=== PATIENT | male | born 1945 | race Caucasian/White ===

== ENCOUNTER 2022-02-05 13:34 | Inpatient (IN) ==
[2022-02-05] MEDS ORDERED: 0.9 % Sodium Chloride 1,000 ML IV ONE (13:44)
[2022-02-05] MEDS ORDERED: Iopamidol - 370 500 ML MLS IVP ONE (13:44)
[2022-02-05 14:28] LABS: Basophils % 0.2 %; Hematocrit 41.1 % (37.5-50.1); Hemoglobin 13.9 g/dL (12.9-16.9); Immature Granulocytes % 0.4 % (0-4); Lymphocytes # 0.9 K/mcL (0.6-4.6); Lymphocytes % 9.8 %; Mean Corpuscular HGB Conc 33.8 g/dL (31.6-35.5); Mean Corpuscular Hemoglobin 32.4 pg (28.0-33.3); Mean Corpuscular Volume 95.8 fL (83.0-100.0); Mean Platelet Volume 10.6 fL (9.4-12.4); Monocytes # 0.4 K/mcL (0.0-1.3); Monocytes % 3.9 %; Neutrophils # 8.1 K/mcL (1.6-8.9); Platelet Count 259 K/mcL (140-400); Red Blood Count 4.29 M/mcL (4.19-5.50); Red Cell Distribution Width 13.4 % (11.5-14.5); Segmented Neutrophils % 85.7 %; White Blood Count 9.4 K/mcL (4.3-11.1)
[2022-02-05 14:50] LABS: Alanine Aminotransferase 12 Units/L (7-52); Albumin 4.2 g/dL (3.5-5.7); Albumin/Globulin Ratio 1.2 (1.1-2.2); Alkaline Phosphatase 75 Units/L (34-104); Aspartate Amino Transferase 18 Units/L (13-39); BUN/Creatinine Ratio 25 (6-26); Bilirubin,Total 0.7 mg/dL (0.3-1.0); Blood Urea Nitrogen 20 mg/dL (8-23); Calcium 9.6 mg/dL (8.6-10.3); Carbon Dioxide 28 mEq/L (23-29); Chloride 108 mEq/L (98-107); Globulin 3.4 g/dL (2.4-3.5); Glucose 117 mg/dL (70-105); Lipase 32 Units/L (11-82); Osmolality,Calculated 296 (280-300); Potassium 3.8 mEq/L (3.5-5.1); Sodium 141 mEq/L (136-145); Total Protein 7.6 g/dL (6.4-8.9)
[2022-02-05] MEDS ORDERED: Naloxone 0.4 MG/ML INJ IVP PRN ×2 (16:34→20:29)
[2022-02-05] MEDS ORDERED: Ketorolac 30 MG/ML VIAL IVP PRN (16:34)
[2022-02-05] MEDS ORDERED: Ondansetron 4 MG/2 ML VIAL IVP PRN ×2 (16:34→20:29)
[2022-02-05] MEDS ORDERED: Morphine Sulfate 2 MG/ML SYRINGE IVP PRN ×2 (16:35→20:29)
[2022-02-05] MEDS ORDERED: Ringers Solution, Lactated 1,000 ML IVC SCH (16:45)
[2022-02-05] MEDS ORDERED: Ondansetron 4 MG/2 ML VIAL ONE ×2 (17:19→18:10)
[2022-02-05] MEDS ORDERED: Lidocaine -MPF 2% 2 ML VIAL ONE ×2 (17:19→17:22)
[2022-02-05] MEDS ORDERED: *HR* Rocuronium Bromide 50 MG/5 ML VIAL ONE ×2 (17:19→17:24)
[2022-02-05] MEDS ORDERED: *HR* Propofol 200 MG/20 ML VIAL IVP ONE (17:19)
[2022-02-05] MEDS ORDERED: *HR* FentaNYL (PF) 100 MCG/2 ML VIAL ONE ×2 (17:19→18:48)
[2022-02-05] MEDS ORDERED: Lidocaine HCL 4 ML Topical Solution (Laryng-O-Jet Kit Sterile Pak) TP ONE (17:21)
[2022-02-05] MEDS ORDERED: Ketamine HCL *QUVA* 50mg (1mL) SYRINGE ONE (17:22)
[2022-02-05] MEDS ORDERED: *HR* Succinylcholine 200 MG/10 ML VIAL IVP ONE (17:30)
[2022-02-05] MEDS ORDERED: Ipratropium/Albuterol Neb 3 ML IH PRN ×2 (17:30→20:29)
[2022-02-05] MEDS ORDERED: cefOXitin 2,000 MG in 0.9 % Sodium Chloride 20 ML IVP ONE (17:45)
[2022-02-05] MEDS ORDERED: *HR* Midazolam HCl 2 MG/2 ML VIAL ONE (17:50)
[2022-02-05] MEDS ORDERED: CefOXitin 2,000 MG VIAL ONE (17:54)
[2022-02-05] MEDS ORDERED: Sugammadex Sodium 200 MG/2 ML VIAL IV ONE (18:50)
[2022-02-05] MEDS: Ringers Solution, Lactated 1,000 ML IVC SCH (21:16)
[2022-02-06 04:11] LABS: Basophils % 0.1 %; Immature Granulocytes % 0.3 % (0-4); Lymphocytes # 0.9 K/mcL (0.6-4.6); Lymphocytes % 8.1 %; Mean Corpuscular HGB Conc 32.6 g/dL (31.6-35.5); Mean Corpuscular Hemoglobin 31.9 pg (28.0-33.3); Mean Corpuscular Volume 97.7 fL (83.0-100.0); Mean Platelet Volume 11.1 fL (9.4-12.4); Monocytes # 0.5 K/mcL (0.0-1.3); Monocytes % 4.4 %; Platelet Count 225 K/mcL (140-400); Red Blood Count 3.48 M/mcL (4.19-5.50); Red Cell Distribution Width 13.7 % (11.5-14.5); Segmented Neutrophils % 87.1 %; White Blood Count 11.5 K/mcL (4.3-11.1)
[2022-02-06 04:13] LABS: Hemoglobin 11.1 g/dL (12.9-16.9)
[2022-02-06 04:30] LABS: BUN/Creatinine Ratio 24 (6-26); Blood Urea Nitrogen 16 mg/dL (8-23); Calcium 8.4 mg/dL (8.6-10.3); Carbon Dioxide 27 mEq/L (23-29); Chloride 106 mEq/L (98-107); Glucose 120 mg/dL (70-105); Osmolality,Calculated 296 (280-300); Sodium 142 mEq/L (136-145)
[2022-02-06] MEDS: Ringers Solution, Lactated 1,000 ML IVC SCH (05:05)
[2022-02-06] MEDS ORDERED: Ringers Solution, Lactated 1,000 ML IVC SCH (14:00)
[2022-02-06] MEDS: Ketorolac 30 MG/ML VIAL IVP PRN (20:02)
[2022-02-07 05:22] LABS: Basophils % 0.1 %; Eosinophils # 0.1 K/mcL (0.0-0.6); Hematocrit 32.9 % (37.5-50.1); Hemoglobin 10.6 g/dL (12.9-16.9); Immature Granulocytes % 0.3 % (0-4); Lymphocytes # 2.1 K/mcL (0.6-4.6); Lymphocytes % 26.1 %; Mean Corpuscular HGB Conc 32.2 g/dL (31.6-35.5); Mean Corpuscular Hemoglobin 31.7 pg (28.0-33.3); Mean Corpuscular Volume 98.5 fL (83.0-100.0); Mean Platelet Volume 11.2 fL (9.4-12.4); Monocytes # 0.7 K/mcL (0.0-1.3); Monocytes % 8.4 %; Neutrophils # 5.1 K/mcL (1.6-8.9); Platelet Count 186 K/mcL (140-400); Red Blood Count 3.34 M/mcL (4.19-5.50); Red Cell Distribution Width 13.5 % (11.5-14.5); Segmented Neutrophils % 64.1 %; White Blood Count 7.9 K/mcL (4.3-11.1)
[2022-02-07 05:47] LABS: BUN/Creatinine Ratio 26 (6-26); Blood Urea Nitrogen 17 mg/dL (8-23); Calcium 8.6 mg/dL (8.6-10.3); Carbon Dioxide 28 mEq/L (23-29); Chloride 103 mEq/L (98-107); Glucose 91 mg/dL (70-105); Magnesium 1.8 mg/dL (1.6-2.6); Osmolality,Calculated 289 (280-300); Phosphorous 2.1 mg/dL (2.7-4.5); Potassium 3.8 mEq/L (3.5-5.1); Sodium 139 mEq/L (136-145)
[2022-02-07] MEDS: Ringers Solution, Lactated 1,000 ML IVC SCH ×2 (08:18→21:51)
[2022-02-07] MEDS: Ketorolac 30 MG/ML VIAL IVP PRN ×2 (08:18→14:31)
[2022-02-07] MEDS: Amoxicillin 500 MG CAPSULE PO SCH ×2 (12:05→20:40)
[2022-02-08 08:16] VITALS: BP 135/77; PULSE 56; TEMP 98.9; O2SAT 92
[2022-02-08 09:10] LABS: BUN/Creatinine Ratio 21 (6-26); Blood Urea Nitrogen 16 mg/dL (8-23); Calcium 8.5 mg/dL (8.6-10.3); Carbon Dioxide 29 mEq/L (23-29); Chloride 108 mEq/L (98-107); Glucose 89 mg/dL (70-105); Magnesium 1.8 mg/dL (1.6-2.6); Osmolality,Calculated 279 (280-300); Phosphorous 3.2 mg/dL (2.7-4.5); Potassium 3.9 mEq/L (3.5-5.1); Sodium 134 mEq/L (136-145)
[2022-02-08] MEDS: Amoxicillin 500 MG CAPSULE PO SCH (09:12)
[2022-02-08 09:17] LABS: Basophils % 0.5 %; Eosinophils # 0.1 K/mcL (0.0-0.6); Hematocrit 35.5 % (37.5-50.1); Hemoglobin 11.6 g/dL (12.9-16.9); Immature Granulocytes % 0.6 % (0-4); Lymphocytes # 1.9 K/mcL (0.6-4.6); Lymphocytes % 28.1 %; Mean Corpuscular HGB Conc 32.7 g/dL (31.6-35.5); Mean Corpuscular Volume 97.8 fL (83.0-100.0); Mean Platelet Volume 11.3 fL (9.4-12.4); Monocytes # 0.6 K/mcL (0.0-1.3); Monocytes % 8.4 %; Platelet Count 207 K/mcL (140-400); Red Blood Count 3.63 M/mcL (4.19-5.50); Red Cell Distribution Width 13.2 % (11.5-14.5); Segmented Neutrophils % 60.4 %; White Blood Count 6.6 K/mcL (4.3-11.1)
[2022-02-08] MEDS: Ringers Solution, Lactated 1,000 ML IVC SCH (12:01)
== END 2022-02-08 13:32 | disposition home or self-care (01) | DRG 327 ==
LOC: EMEROOARM 13:34 → 3ANU 13:34 → SUATTDRO 18:18
PROVIDERS: ADMIT Internal Medicine; ATTEND Internal Medicine